=== PATIENT | male | born 2000 | race African-American/Black ===

== ENCOUNTER 2020-11-14 17:51 | Emergency (ER) | payer MEDICARE, MEDICAID, SELFPAY ==
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
[2020-11-14 18:01] VITALS: BP 100/70; PULSE 109; RESP 22; TEMP 37.2; O2SAT 98; BMI 67.2
[2020-11-14] MEDS: 0.9 % Sodium Chloride 1,000 ML 999 ML IVCONT (18:05)
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
[2020-11-14 18:29] VITALS: BP 142/95; PULSE 112; RESP 20; O2SAT 100
[2020-11-14] MEDS: Morphine Sulfate 4 MG/ML CARTRIDGE IVPUSH (18:29)
[2020-11-14 19:40] VITALS: RESP 16
[2020-11-14] MEDS: Lidocaine 4 % Cream KIT 1 APPL TOPICAL (19:40)
[2020-11-14 20:08] VITALS: RESP 16
[2020-11-14] MEDS: HYDROmorphone HCl 1 MG/ML SYRINGE IVPUSH (20:08)
[2020-11-14 20:09] LABS: MANUAL DIFF FLAG NO
[2020-11-14 20:11] LABS: Basophils Absolute Auto 0.1 X10*3/uL (0.0-0.2); Basophils Percent Auto 0.3 % (0-2); Eosinophils Absolute Auto 0.1 X10*3/uL (0.0-0.4); Eosinophils Percent Auto 0.8 % (0-4); Hematocrit 32.7 % (42-52); Hemoglobin 11.5 g/dl (14.0-18.0); Imm Gran Pct Auto 0.6 % (0.0-0.4); Lymphocytes Absolute Auto 1.4 X10*3/uL (1.2-4.9); Lymphocytes Percent Auto 7.7 % (20-40); Mean Corpuscular HGB Conc 35.2 g/dl (31.0-36.0); Mean Corpuscular Hemoglobin 30.6 pg (27.0-33.0); Mean Platelet Volume 10.8 fL (9.4-12.4); Monocytes Absolute Auto 1.3 X10*3/uL (0.1-1.2); Monocytes Percent Auto 7.1 % (2-11); Neutrophils Absolute Auto 14.8 X10*3/uL (2.0-8.3); Neutrophils Percent Auto 83.5 % (45-73); Platelet Count 258 X10*3/uL (160-400); Red Blood Count 3.76 X10*6/uL (4.60-5.80); Red Cell Distribution Width 13.3 % (11.0-16.0); White Blood Count 17.7 X10*3/uL (4.8-10.8)
[2020-11-14 20:37] LABS: Anion Gap 13 (12-20); Blood Urea Nitrogen 15 mg/dL (9-16); Calcium 7.8 mg/dL (8.4-10.2); Carbon Dioxide 21 mmol/L (22-29); Chloride 109 mmol/L (96-108); Creatinine Clr Calc Pharmacy 171.2; Estimated Glomerular Filt Rate > 60; Glucose Random 130 mg/dL (60-115); Sodium 139 mmol/L (135-145)
[2020-11-14 21:51] VITALS: RESP 14
[2020-11-15] MEDS: Lidocaine HCl 2 % MPF 5 ML VIAL 10 ML INFILTRATI (00:11)
[2020-11-15] MEDS: Diphth,Pertus(ACell),Tet Adult 0.5 ML SYRINGE IM (01:51)
[2020-11-15 02:00] VITALS: PULSE 91; RESP 20; O2SAT 96
== END 2020-11-15 03:00 | disposition home or self-care (01) ==
PROVIDERS: Emergency Provider Emergency Medicine
DX: S81.832A Puncture wound without foreign body, left lower leg, initial encounter (principal); S61.432A Puncture wound without foreign body of left hand, initial encounter; M79.662 Pain in left lower leg; M79.642 Pain in left hand; W34.00XA Accidental discharge from unspecified firearms or gun, initial encounter; Y93.9 Activity, unspecified; Y92.9 Unspecified place or not applicable; Y99.9 Unspecified external cause status; Z79.899 Other long term (current) drug therapy
CPT/HCPCS: 12031; 12042; 36415; 73120; 73560; 73590; 73700; 80048; 85025; 86850; 86900; 86901; 90471; 90715; 96360; 96365; 96375; 99284; J0690; J1170; J2270

== ENCOUNTER → 2020-11-20 14:48 | Outpatient (BNVA) | payer MEDICARE, MEDICAID, SELFPAY | PROVIDERS: Visit Provider Physician Assistant | DX: S82.142A Displaced bicondylar fracture of left tibia, initial encounter for closed fracture (principal); S81.032A Puncture wound without foreign body, left knee, initial encounter; S61.412A Laceration without foreign body of left hand, initial encounter; Y24.9XXA Unspecified firearm discharge, undetermined intent, initial encounter; Y93.9 Activity, unspecified; Y92.9 Unspecified place or not applicable; Y99.8 Other external cause status | CPT/HCPCS: 99202 ==

== ENCOUNTER 2020-11-27 11:46 | Outpatient (REF) | payer MEDICARE, MEDICAID, SELFPAY ==
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
== END 2020-11-27 11:47 | disposition home or self-care (01) ==
LOC: HO.HOSX 11:46
PROVIDERS: Visit Provider Physician Assistant
DX: S81.832A Puncture wound without foreign body, left lower leg, initial encounter (principal); W34.00XA Accidental discharge from unspecified firearms or gun, initial encounter
CPT/HCPCS: 73560; 99212

== ENCOUNTER 2020-12-01 08:05 | Outpatient (RCR) | payer MEDICARE, MEDICAID, SELFPAY | END 2021-02-19 10:46 | disposition home or self-care (01) | LOC: HO.WCC 08:05 | PROVIDERS: Visit Provider Physician Assistant | DX: S81.832D Puncture wound without foreign body, left lower leg, subsequent encounter (principal); S82.142D Displaced bicondylar fracture of left tibia, subsequent encounter for closed fracture with routine healing; Z79.899 Other long term (current) drug therapy | CPT/HCPCS: 11042; 87071; 87205; 99212; 99213 ==

== ENCOUNTER 2021-01-07 08:02 | Outpatient (REF) | payer MEDICARE, MEDICAID, SELFPAY ==
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
== END 2021-01-07 08:03 | disposition home or self-care (01) ==
LOC: HO.HOSX 08:02
PROVIDERS: Visit Provider Physician Assistant
DX: S82.142D Displaced bicondylar fracture of left tibia, subsequent encounter for closed fracture with routine healing (principal); W34.00XD Accidental discharge from unspecified firearms or gun, subsequent encounter
CPT/HCPCS: 73560; 99212

== ENCOUNTER 2021-02-18 06:06 | Outpatient (REF) | payer MEDICARE, MEDICAID, SELFPAY | END 2021-02-18 06:07 | disposition home or self-care (01) | LOC: HO.HOSX 06:06 | PROVIDERS: Visit Provider Physician Assistant | DX: Z13.89 Encounter for screening for other disorder (principal) ==

== ENCOUNTER 2021-02-19 06:37 | Outpatient (REF) | payer MEDICARE, MEDICAID, SELFPAY | END 2021-02-19 06:38 | disposition home or self-care (01) | LOC: HO.HOSX 06:37 | PROVIDERS: Visit Provider Physician Assistant | DX: Z13.89 Encounter for screening for other disorder (principal) ==

== ENCOUNTER 2021-03-27 12:53 | Outpatient (REF) | payer MEDICARE, MEDICAID, SELFPAY ==
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
== END 2021-03-27 12:54 | disposition home or self-care (01) ==
LOC: HO.HOSX 12:53
PROVIDERS: Visit Provider Physician Assistant
DX: S82.142D Displaced bicondylar fracture of left tibia, subsequent encounter for closed fracture with routine healing (principal)
CPT/HCPCS: 73560; 99212

== ENCOUNTER 2021-04-29 13:00 | Outpatient (RCR) | payer MEDICARE, MEDICAID, SELFPAY ==
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
--- NOTE | 2021-05-29 14:25 | MHC.PT.DC ---
[facility] [place] Office [place] Office [place] Office [address] [facility] [phone] F: [phone] F: [phone] F: [phone] F: [phone] Physical Therapy Discharge Report Diagnosis: LEFT TIBIAL PLATEAU FRACTURE Date of Surgery: NA Date of Evaluation: 04/15/21 Date of Discharge: 04/29/21 Treatments to Date: 4 Cancellations to Date: 0 No Shows to Date: 0 Discharge Status: Discharge Summary: ALLAN WAS PROGRESSING WELL DEMONSTRATED BY INCREASED ABILITY TO PERFORM STANDING AND WEIGHT SHIFTING ACTIVITIES HOWEVER, HE CANCELLED AND NO SHOWED FOR HIS LAST TWO SCHEDULED VISITS. CURRENT STATUS IS UNKNOWN. Electronically signed by: RINA ASTORGA PT, DPT Please sign and return to therapist. Thank you for your referral.
== END 2021-05-29 14:26 | disposition home or self-care (01) ==
LOC: HO.PT 13:00
PROVIDERS: Visit Provider Physician Assistant
DX: S82.142D Displaced bicondylar fracture of left tibia, subsequent encounter for closed fracture with routine healing (principal)
CPT/HCPCS: 97110; 97161; 97530